=== PATIENT | female | born 1970 | race Caucasian/White ===

== ENCOUNTER 2017-01-25 17:11 | Emergency (ER) | payer OTHER ==
[2017-01-25] MEDS ORDERED: ASPIRIN 81 MG TABLET, CHEWABLE PO ONE (18:31)
--- NOTE | 2017-01-25 18:33 | ER Document Report ---
ED Medical Screen (RME) - General Chief Complaint: Chest Pain Stated Complaint: FAST HEART RATE,SWEATING Time Seen by Provider: 01/25/17 18:31 Mode of Arrival: Ambulatory Information source: Patient Notes: Patient presents complaining of midsternal chest pain that goes up into the left side of her neck that has been off and on since yesterday. Patient does report some shortness of breath. Patient denies any cough, nausea, or vomiting. Patient denies any personal history of heart disease hx: Hypothyroid TRAVEL OUTSIDE OF THE [place] IN LAST 30 DAYS: No - Related Data Allergies/Adverse Reactions: formaldehyde Allergy (Intermediate, Verified 01/25/17 17:27) ECZEMA, SKIN IRRIATION Past Medical History - Past Medical History Cardiac Medical History: Denies: Hx Coronary Artery Disease, Hx Heart Attack, Hx Hypertension Pulmonary Medical History: Denies: Hx Asthma, Hx Bronchitis, Hx COPD, Hx Pneumonia Neurological Medical History: Denies: Hx Cerebrovascular Accident, Hx Seizures Renal/ Medical History: Denies: Hx Peritoneal Dialysis Musculoskeltal Medical History: Denies Hx Arthritis - Immunizations Hx Diphtheria, Pertussis, Tetanus Vaccination: Yes Physical Exam - Vital signs Vitals: Temp Pulse Resp BP Pulse Ox 98.0 F 91 18 167/89 H 99 01/25/17 17:27 01/25/17 17:27 01/25/17 17:27 01/25/17 17:27 01/25/17 17:27 - Cardiovascular Rhythm: Regular Heart sounds: S1 appreciated, S2 appreciated Murmur: No Course - Vital Signs Vital signs: Temp Pulse Resp BP Pulse Ox 98.0 F 91 18 167/89 H 99 01/25/17 17:27 01/25/17 17:27 01/25/17 17:27 01/25/17 17:27 01/25/17 17:27
[2017-01-25 19:17] LABS: ABSOLUTE BASOPHILS # (AUTO) 0.1 10^3/uL (0.0-0.2); ABSOLUTE EOSINOPHILS # (AUTO) 0.1 10^3/uL (0.0-0.6); ABSOLUTE LYMPHOCYTES (AUTO) 2.3 10^3/uL (0.5-4.7); ABSOLUTE MONOCYTES (AUTO) 0.5 10^3/uL (0.1-1.4); ABSOLUTE NEUT (AUTO) 4.7 10^3/uL (1.7-8.2); BASOPHILS % (AUTO) 0.8 % (0-2); EOSINOPHILS % (AUTO) 0.9 % (0-6); HEMATOCRIT 41.2 % (36.0-47.0); HEMOGLOBIN 14.3 g/dL (12.0-15.5); HGB HCT DIFFERENCE 1.7; LYMPHOCYTES % (AUTO) 30.4 % (13-45); MEAN CORPUSCULAR HEMOGLOBIN 31.2 pg (27.0-33.4); MEAN CORPUSCULAR HGB CONC 34.7 g/dL (32.0-36.0); MEAN CORPUSCULAR VOLUME 90 fl (80-97); MONOCYTES % (AUTO) 6.1 % (3-13); RED BLOOD COUNT 4.58 10^6/uL (3.72-5.28); RED CELL DISTRIBUTION WIDTH 13.5 % (11.5-14.0); SEGMENTED NEUTROPHILS % (AUTO) 61.8 % (42-78); WHITE BLOOD COUNT 7.5 10^3/uL (4.0-10.5)
[2017-01-25 19:21] LABS: APPEARANCE,URINE SLIGHTLY-CLOUDY; BILIRUBIN,URINE NEGATIVE (NEGATIVE); GLUCOSE, URINE NEGATIVE (NEGATIVE); KETONES,URINE NEGATIVE (NEGATIVE); LEUKOCYTE ESTERASE,URINE NEGATIVE (NEGATIVE); NITRITE,URINE POSITIVE (NEGATIVE); PROTEIN,URINE NEGATIVE (NEGATIVE); URINE SPECIFIC GRAVITY 1.013; UROBILINOGEN,URINE NEGATIVE mg/dL (<2.0)
[2017-01-25 19:38] LABS: ALANINE AMINOTRANSFERASE 37 U/L (9-52); ALBUMIN 4.5 g/dL (3.5-5.0); ALKALINE PHOSPHATASE 87 U/L (38-126); ANION GAP 13 (5-19); ASPARTATE AMINO TRANSFERASE 25 U/L (14-36); BILIRUBIN,DIRECT 0.3 mg/dL (0.0-0.4); BILIRUBIN,TOTAL 0.4 mg/dL (0.2-1.3); BLOOD UREA NITROGEN 15 mg/dL (7-20); CALCIUM 9.5 mg/dL (8.4-10.2); CARBON DIOXIDE 23 mmol/L (22-30); CHLORIDE 105 mmol/L (98-107); CREATINE KINASE 90 U/L (30-135); CREATININE RESULT 0.68 mg/dL (0.52-1.25); GLUCOSE 91 mg/dL (75-110); LIPASE 56.3 U/L (23-300); MAGNESIUM 2.1 mg/dL (1.6-2.3); POTASSIUM 4.4 mmol/L (3.6-5.0); SODIUM 140.6 mmol/L (137-145); TOTAL PROTEIN 7.5 g/dL (6.3-8.2)
--- NOTE | 2017-01-25 19:40 | RADIOLOGY REPORT (SQ) ---
EXAM DESCRIPTION: CHEST PA/LAT COMPLETED DATE/TIME: 01/25/2017 7:17 pm REASON FOR STUDY: cp COMPARISON: None. EXAM PARAMETERS: NUMBER OF VIEWS: two views TECHNIQUE: Digital Frontal and Lateral radiographic views of the chest acquired. RADIATION DOSE: NA LIMITATIONS: none FINDINGS: LUNGS AND PLEURA: No opacities, masses or pneumothorax. No pleural effusion. MEDIASTINUM AND HILAR STRUCTURES: No masses or contour abnormalities. HEART AND VASCULAR STRUCTURES: Heart normal size. No evidence for failure. BONES: No acute findings. HARDWARE: None in the chest. OTHER: No other significant finding. IMPRESSION: NO SIGNIFICANT RADIOGRAPHIC FINDING IN THE CHEST. TECHNICAL DOCUMENTATION: JOB ID: [id number] [employer]- All Rights Reserved
[2017-01-25 19:49] LABS: CREATINE KINASE MB 1.13 ng/mL (<4.55)
[2017-01-25 19:53] LABS: TROPONIN I < 0.012 ng/mL
--- NOTE | 2017-01-25 20:56 | ER Document Report ---
ED Cardiac - General Chief Complaint: Chest Pain Stated Complaint: FAST HEART RATE,SWEATING Time Seen by Provider: 01/25/17 18:31 Mode of Arrival: Ambulatory Notes: Patient is a 46-year-old female that comes emergency department for chief complaint of pain in the left side of her neck and in her shoulder since yesterday, she also states that she feels a strange fluttering sensation in her chest and the front occasionally more noticeable since yesterday as well. She states that 2 days ago she was mountain biking and she thinks she might have injured her shoulder at that time, she admits that the pain is much worse with movement and she has increasing soreness. Patient has a past medical history of hypothyroidism, she is on Synthroid for this, she also has a history of depression for which she takes Prozac and Wellbutrin. She states she recently had her Wellbutrin increased. She denies smoking currently, former smoker, she does currently sleep. She denies family history of cardiac disease, personal history of cardiac disease. She denies shortness of breath, lower extremity swelling, recent travel, recent surgery. TRAVEL OUTSIDE OF THE [place] IN LAST 30 DAYS: No - Related Data Allergies/Adverse Reactions: formaldehyde Allergy (Intermediate, Verified 01/25/17 17:27) ECZEMA, SKIN IRRIATION Past Medical History - General Information source: Patient - Social History Smoking Status: Former Smoker Chew tobacco use (# tins/day): No Frequency of alcohol use: Occasional Drug Abuse: None Lives with: Alone Family History: Reviewed & Not Pertinent - Past Medical History Cardiac Medical History: Denies: Hx Coronary Artery Disease, Hx Heart Attack, Hx Hypertension Pulmonary Medical History: Denies: Hx Asthma, Hx Bronchitis, Hx COPD, Hx Pneumonia Neurological Medical History: Denies: Hx Cerebrovascular Accident, Hx Seizures Endocrine Medical History: Reports: Hx Hypothyroidism Renal/ Medical History: Denies: Hx Peritoneal Dialysis Musculoskeltal Medical History: Denies Hx Arthritis Psychiatric Medical History: Reports: Hx Depression Past Surgical History: Reports: Hx Hysterectomy, Hx Orthopedic Surgery - Immunizations Hx Diphtheria, Pertussis, Tetanus Vaccination: Yes Review of Systems - Review of Systems Constitutional: No symptoms reported EENT: No symptoms reported Cardiovascular: See HPI Respiratory: No symptoms reported Gastrointestinal: No symptoms reported Genitourinary: No symptoms reported Female Genitourinary: No symptoms reported Musculoskeletal: See HPI Skin: No symptoms reported Hematologic/Lymphatic: No symptoms reported Neurological/Psychological: No symptoms reported Physical Exam - Vital signs Vitals: Temp Pulse Resp BP Pulse Ox 98.0 F 91 18 167/89 H 99 01/25/17 17:27 01/25/17 17:27 01/25/17 17:27 01/25/17 17:27 01/25/17 17:27 Interpretation: Normal - General General appearance: Alert, Anxious - Patient looks nervous but does not appear to be in any distress In distress: None - HEENT Head: Normocephalic, Atraumatic Eyes: Normal Pupils: PERRL - Respiratory Respiratory status: No respiratory distress Chest status: Tender - Patient specifically tender in the area of the supraspinatus muscle extending down to the left lateral pectoralis muscle on examination. Worse with movement and specifically reproducible on palpation. Otherwise unremarkable. Breath sounds: Normal Chest palpation: Normal - Cardiovascular Rhythm: Regular, Extrasystoles - Occasional extra systolic. No: Tachycardia, Bradycardia Heart sounds: Normal auscultation, S1 appreciated, S2 appreciated Murmur: No - Abdominal Inspection: Normal Distension: No distension Bowel sounds: Normal Tenderness: Nontender. No: Tender, Guarding Organomegaly: No organomegaly - Back Back: Normal, Nontender. No: Tender - Extremities General upper extremity: Normal inspection, Nontender, Normal color, Normal ROM , Normal temperature General lower extremity: Normal inspection, Nontender, Normal color, Normal ROM , Normal temperature, Normal weight bearing. No: Ankur's sign - Neurological Neuro grossly intact: Yes Cognition: Normal Orientation: AAOx4 Ruslan Coma Scale Eye Opening: Spontaneous Ruslan Coma Scale Verbal: Oriented Orange Coma Scale Motor: Obeys Commands Ruslan Coma Scale Total: 15 Speech: Normal Motor strength normal: LUE, RUE, LLE, RLE Sensory: Normal - Psychological Associated symptoms: Normal affect, Normal mood, Anxious - Patient speaks nervously about her symptoms - Skin Skin Temperature: Warm Skin Moisture: Dry Skin Color: Normal Course - Re-evaluation Re-evalutation: On monitoring patient is having PVCs. She informs me of the symptom and I noticed that she is having a PVC at the same time. Patient also has very specific reproducible soreness in the muscular area of her left pectoral muscle and the supraspinatus muscle. She has a reason for the soreness as well. EKG with no T-wave inversions or ST segment changes in consecutive leads. No Q waves in consecutive leads, TN interval is normal, no ischemic abnormalities noted. 2 sets of negative cardiac enzymes. CBC, chemistry, thyroid screening unremarkable. Patient young, heart score of only 1. History not concerning for ACS, symptoms have been present for over 8 hours and 2 negative sets of enzymes. Low suspicion of PE based on symptoms, exam, workup, and vital signs. Patient treated with naproxen, muscle relaxer for her shoulder injury, discussed removal of nicotine, reduction of caffeine, and potential adjustment of her medications that she is currently taking. Patient states that she will follow- up with her primary care within the next 2 days for management of this. Discussed return precautions in detail, patient states understanding and agreement. - Vital Signs Vital signs: Temp Pulse Resp BP Pulse Ox 97.7 F 75 19 139/96 H 98 01/25/17 23:30 01/25/17 23:30 01/25/17 23:30 01/25/17 23:30 01/25/17 23:30 - Laboratory Result Diagrams: 01/25/17 19:10 01/25/17 19:10 Laboratory results interpreted by me: 01/25/17 19:10 Urine Nitrite POSITIVE H Discharge - Discharge Clinical Impression: Palpitations Left shoulder pain Qualifiers: Chronicity: acute Qualified Code(s): M25.512 - Pain in left shoulder Condition: Stable Disposition: HOME, SELF-CARE Additional Instructions: Your workup shows PVCs, sore muscles in your shoulder, but no acute abnormality otherwise. Reduce caffeine, nicotine. Follow-up with your provider for additional care including possible medication dose management. Your urine is questionable, we have a urine culture growing in our lab. Return to emergency department for any concerning or worsening symptoms including difficulty breathing, passing out, or any other concerning symptoms. Prescriptions: Methocarbamol [Robaxin 500 mg Tablet] 500 mg PO QID PRN #20 tablet PRN Reason: Naproxen [Naprosyn 375 Mg Tablet] 375 mg PO BID #20 tablet Forms: Return to Work
[2017-01-25 23:32] VITALS: BP 139/96
== END 2017-01-25 23:30 | disposition home or self-care (01) ==
LOC: ER 17:11
DX: R00.2 Palpitations (principal); M25.512 Pain in left shoulder; R07.9 Chest pain, unspecified; R61 Generalized hyperhidrosis; Z87.891 Personal history of nicotine dependence; I25.10 Atherosclerotic heart disease of native coronary artery without angina pectoris
CPT/HCPCS: 36415; 71020; 80053; 81001; 82550; 82553; 83690; 83735; 84443; 84484; 85025; 87086; 87088; 87186; 99285